=== PATIENT | female | born 1985 | race Caucasian/White ===

== ENCOUNTER 2022-10-30 13:20 | Inpatient (IN) | payer BC ==
[~2022-10-30] VITALS: Ht 172.7 cm; Wt 92.0 kg
[2022-10-30] VITALS (9 sets, daily range): BP systolic 117–155; BP diastolic 71–95; PULSE 87–116; TEMP 97.6–995
[2022-10-30] MEDS ORDERED: OMNICEF 300MG300 MG PO (13:31)
[2022-10-30] MEDS ORDERED: [UNRECOGNIZED DRUG - CODE] PO (13:32)
[2022-10-30] MEDS ORDERED: REGLAN 5MG T5 MG/TAB PO (13:32)
[2022-10-30] MEDS ORDERED: CARAFATE 1GM1 G PO (13:33)
[2022-10-30] MEDS ORDERED: ZESTRIL 10MG10 MG PO (13:41)
[2022-10-30] MEDS ORDERED: ZOLOFT PO (13:41)
[2022-10-30] MEDS ORDERED: XANAX 0.5MG0.5 MG PO (13:42)
--- NOTE | 2022-10-30 14:12 | NUR ---
Pt arrived as direct admit from [place], [place]. She reports having a gallbladder removal on 10/22/22. Midline abd. incision x 2 w/ sutures, 2 incision w/ sutures noted to left side abd. Pt denies abd. pain at this time. Denies nausea. All other skin is intact. Pt is a/o x 4. is at the bedside. Valuables denied. Orientation provided to room/unit. They had no further questions. Call light is in her reach.
[2022-10-30 15:11] LABS: HEMOGLOBIN 11.1 g/dl (12.5-16.0); MEAN CELL VOLUME 87 fl (80.0-100.0); MEAN CORPUSCULAR HEMOGLOBIN 28 pg (27-31); MEAN CORPUSCULAR HGB CONC 33 g/dl (33.0-37.0); MEAN PLATELET VOLUME 9.9 fl (7.4-10.4); PLATELET COUNT 522 K/mm3 (130-400); RED BLOOD COUNT 3.94 M/mm3 (4.10-5.30); REDCELL DISTRIBUTION WIDTH-CV 13.2 % (11.5-14.5)
[2022-10-30 15:12] LABS: HEMATOCRIT 34.1 % (37.0-47.0)
[2022-10-30 15:27] LABS: ALBUMIN 2.2 gm/dL (3.5-5.0); BILIRUBIN,TOTAL 0.5 mg/dL (0.2-1.2); CALCIUM 8.8 mg/dL (8.4-10.2); CREATININE, serum 0.53 mg/dL (0.57-1.11); TOTAL PROTEIN 6.6 gm/dL (6.2-8.1)
[2022-10-30 15:32] LABS: POTASSIUM 2.8 mmol/L (3.5-4.5)
--- NOTE | 2022-10-30 15:37 | NUR ---
Lab called to report WBC of 22.4. Dr. Sierra notified.
--- NOTE | 2022-10-30 15:45 | NUR ---
Lab called to report K+ 2.8. Dr. Sierra notified.
--- NOTE | 2022-10-30 15:54 | NUR ---
Pt is off the unit to OR.
[2022-10-30 15:57] LABS: ANISOCYTOSIS 1+; BAND 1 % (0-10); LYMPHOCYTE 10 % (20.0-51.0); NEUTROPHILS 85 % (42.0-75.2); PLATELET ESTIMATE INCREASED (NORMAL); TOXIC GRANULATION PRESENT
[2022-10-30 15:58] LABS: STOMATOCYTE 1+
--- NOTE | 2022-10-30 19:16 | NUR ---
RECEIVED CHANGE OF SHIFT REPORT FROM DAY SHIFT RN.
[2022-10-31] VITALS (8 sets, daily range): BP systolic 100–128; BP diastolic 61–74; PULSE 91–101; TEMP 98.4–99.4
--- NOTE | 2022-10-31 07:09 | NUR ---
CHANGE OF SHIFT REPORT GIVEN TO DAY SHIFT RNJENNIFER. PATIENT RESTING IN BED, RECEIVED X3 DOSES OF MS 1 MG FOR BREAKTHROUGH PAIN WITH EPIDURAL STILL IN PLACE. ENCOURAGED TO CONTINUE TO USE EPIDURAL DEMAND DOSE BUTTON NEEDED. PATIENT STATED SHE HOPES TO HAVE MORE PO FLUIDS BESIDES SIPS/CHIPS OF ICE. OBSERVED PATIENT BELCHING INTERMITTENTLY THROUGHOUT THE NIGHT, DENIES PASSING FLATUS. RUBI DRAIN IN PLACE/COMPRESSED. DRESSINGS TO ABD CDI. OLIVERA DRAINING CLEAR YELLOW URINE.
[2022-10-31 07:14] LABS: HEMATOCRIT 40.1 % (37.0-47.0); HEMOGLOBIN 12.7 g/dl (12.5-16.0); MEAN CELL VOLUME 88 fl (80.0-100.0); MEAN CORPUSCULAR HEMOGLOBIN 28 pg (27-31); MEAN CORPUSCULAR HGB CONC 32 g/dl (33.0-37.0); MEAN PLATELET VOLUME 10.1 fl (7.4-10.4); RED BLOOD COUNT 4.57 M/mm3 (4.10-5.30); REDCELL DISTRIBUTION WIDTH-CV 13.5 % (11.5-14.5)
[2022-10-31 07:21] LABS: PLATELET COUNT 625 K/mm3 (130-400)
--- NOTE | 2022-10-31 07:24 | NUR ---
Dr. Sierra notified of elevated WBC, and platlet counts.
[2022-10-31 07:35] LABS: CALCIUM 8.6 mg/dL (8.4-10.2); CREATININE, serum 0.55 mg/dL (0.57-1.11); MAGNESIUM 1.5 mg/dL (1.6-2.6); PHOSPHOROUS 5.3 mg/dL (2.3-4.7); POTASSIUM 3.5 mmol/L (3.5-4.5)
--- NOTE | 2022-10-31 09:00 | NUR ---
Pt. sitting up in chair. Pt. is A&OX3, assessment complete. IV to rt. forearm patent. Abd. incisions CDI. Pt. with epidural for pt. Pt. voices pain ok at this time. Pt. denies further needs, call light within reach.
--- NOTE | 2022-10-31 10:13 | NUR ---
Initial visit; Patient stated that she surely could use a prayer. Braid Pattern Setter offered a healing prayer and God's blessings for Debi. Braid Pattern Setter will keep Debi in her prayers.
--- NOTE | 2022-10-31 15:21 | NUR ---
RENATA met with the patient and her , Colton (ph#[phone]), to discuss discharge plan. The patient lives in [place] with Colton and their 8-year-old daughter. She shares that their daughter is staying with her sister while she is here. She reports independence with ADLs and does not have any DME. The patient's PCP has been Dr. Souza, but she shares that Dr. Souza is the reason why she is here and she will be looking for a new PCP to switch to in [place]. She obtains her medications from [facility]. The patient does not have a DPOA-HC, but she was interested in obtaining a form. RENATA provided. The patient plans to return home with her family upon discharge. No additional needs at this time. *Discharge plan: home with family*
--- NOTE | 2022-10-31 20:42 | NUR ---
Patient A/Ox4, head to toe assessment done, see shift assessment, with IV infusing well on right forearm, dressing CDI, with YUE drain draining minimal serosanguinous fluid, with epidural running at 6cc/hr with 10 minutes lock out, received an order from Dr. Puckett at 1955 for TUMS 1000mg every hour as needed for indigestion and Xanax 0.5 mg daily PRN, denies further needs, call light and personal items within reach, will continue to monitor.
--- NOTE | 2022-11-01 | NUR ---
Patient's oxygen saturation is on the low 90's, RT informed about this.
[2022-11-01 00:04] VITALS: BP 119/72; PULSE 108; TEMP 98.7
--- NOTE | 2022-11-01 01:17 | NUR ---
Patient still complaining of indigestion Tums given per request and as ordered PRN.
[2022-11-01 04:31] VITALS: BP 113/62; PULSE 91; TEMP 98
--- NOTE | 2022-11-01 04:44 | NUR ---
Patient reports pain all over her abdomen, pain score of 8/10, encouraged to hit the button for her epidural, instructed to wait few minutes and if pain still is present, will give morphine for breakthrough pain, patient agreed with the plan, reports her indigestion is better.
--- NOTE | 2022-11-01 05:17 | NUR ---
Patient verbalized pain is better, denies further need at this time, will continue to monitor.
--- NOTE | 2022-11-01 06:37 | NUR ---
Patient walked down the hallway, denies further need at this time.
[2022-11-01 06:45] LABS: MEAN CELL VOLUME 87 fl (80.0-100.0); MEAN CORPUSCULAR HGB CONC 31 g/dl (33.0-37.0); MEAN PLATELET VOLUME 10.2 fl (7.4-10.4); RED BLOOD COUNT 3.91 M/mm3 (4.10-5.30); REDCELL DISTRIBUTION WIDTH-CV 13.7 % (11.5-14.5)
[2022-11-01 07:08] LABS: HEMATOCRIT 34.1 % (37.0-47.0); MEAN CORPUSCULAR HEMOGLOBIN 27 pg (27-31); PLATELET COUNT 524 K/mm3 (130-400)
[2022-11-01 07:09] LABS: HEMOGLOBIN 10.7 g/dl (12.5-16.0)
[2022-11-01 07:21] LABS: CALCIUM 8.7 mg/dL (8.4-10.2); CREATININE, serum 0.53 mg/dL (0.57-1.11); MAGNESIUM 1.6 mg/dL (1.6-2.6); PHOSPHOROUS 3.3 mg/dL (2.3-4.7); POTASSIUM 4.3 mmol/L (3.5-4.5)
[2022-11-01 08:00] VITALS: BP 128/85; PULSE 82; TEMP 98.2
--- NOTE | 2022-11-01 08:00 | NUR ---
Patient sitting up in bed, A&Ox4. VSS. IV CDI, fluids infusing. Epidural intact. White intact. Reports pain 12/07. Tolerating clears. No further needs expressed. Call light within reach
--- NOTE | 2022-11-01 10:16 | NUR ---
White removed, balloon intact. Pericare provided before and after removal. Nursing staff instructed the patient to call when needing to void. Call light within reach
--- NOTE | 2022-11-01 10:18 | NUR ---
Incisions abdomen dressing 4x4 and metapor, drain sponge on dmitriy site and metapor. Scant drainage on dmitriy site. Patient tolerated well. Call light within reach
--- NOTE | 2022-11-01 10:18 | NUR ---
10ml removed from the balloon. 600 ml emptied from salazar
[2022-11-01 11:45] VITALS: BP 129/73; PULSE 115; TEMP 97.9
[2022-11-01 15:23] VITALS: BP 133/80; PULSE 104; TEMP 98
[2022-11-01 19:45] VITALS: BP 132/77; PULSE 116; TEMP 98.6
--- NOTE | 2022-11-01 21:15 | NUR ---
Patient in good spirits, at bedside, very supportive, still with IV infusing well on right forearm, dressing to abdomen CDI, still with epidural running at 6cc/hr with 10 minutes lock out, has been voiding fine, tolerating her full liquid diet, denies nause at this time, denies further needs, call light and personal items within reach, will continue to monitor.
[2022-11-02] VITALS (9 sets, daily range): BP systolic 128–158; BP diastolic 70–89; PULSE 74–94; TEMP 97.5–98.7
[2022-11-02 06:55] LABS: HEMOGLOBIN 10.2 g/dl (12.5-16.0); MEAN CELL VOLUME 91 fl (80.0-100.0); MEAN CORPUSCULAR HEMOGLOBIN 28 pg (27-31); MEAN CORPUSCULAR HGB CONC 31 g/dl (33.0-37.0); MEAN PLATELET VOLUME 10.3 fl (7.4-10.4); PLATELET COUNT 473 K/mm3 (130-400); RED BLOOD COUNT 3.63 M/mm3 (4.10-5.30); REDCELL DISTRIBUTION WIDTH-CV 13.5 % (11.5-14.5)
[2022-11-02 07:05] LABS: HEMATOCRIT 32.9 % (37.0-47.0)
[2022-11-02 07:16] LABS: CALCIUM 8.5 mg/dL (8.4-10.2); CREATININE, serum 0.53 mg/dL (0.57-1.11); MAGNESIUM 1.6 mg/dL (1.6-2.6); POTASSIUM 3.7 mmol/L (3.5-4.5)
--- NOTE | 2022-11-02 10:42 | NUR ---
Per VO Dr. Sierra, removed sutures x 2 from R abdomen. Sutures from lap procedure prior to admit. Lap sites CDI, SHAFT SINKER, sutures out complete/intact.
--- NOTE | 2022-11-02 21:00 | NUR ---
Patient reports she is over with the IV, dayshift nurse attempted to restart an IV but failed, called Dr. Sierra at 2009 and received an order to switch the IV antibiotics to PO, Dr. Sierra was also okay without having an IV even if an epidural still in place.
[2022-11-03] VITALS (9 sets, daily range): BP systolic 129–148; BP diastolic 71–95; PULSE 69–84; TEMP 97.5–98.4
[2022-11-03 06:37] LABS: HEMOGLOBIN 10.1 g/dl (12.5-16.0); MEAN CELL VOLUME 90 fl (80.0-100.0); MEAN CORPUSCULAR HEMOGLOBIN 28 pg (27-31); MEAN CORPUSCULAR HGB CONC 31 g/dl (33.0-37.0); MEAN PLATELET VOLUME 10.2 fl (7.4-10.4); PLATELET COUNT 500 K/mm3 (130-400); RED BLOOD COUNT 3.59 M/mm3 (4.10-5.30); REDCELL DISTRIBUTION WIDTH-CV 13.5 % (11.5-14.5)
[2022-11-03 06:41] LABS: CALCIUM 8.5 mg/dL (8.4-10.2); CREATININE, serum 0.51 mg/dL (0.57-1.11); POTASSIUM 3.7 mmol/L (3.5-4.5)
[2022-11-03 07:00] LABS: HEMATOCRIT 32.4 % (37.0-47.0)
--- NOTE | 2022-11-03 10:45 | NUR ---
PATIENT ALERT AND ORIENTED X4. VSS. PATIENT HERE FOR BILE LEAK S/P LAP LATOYA. PATIENT REPORTS PAIN 4/10, PAIN MEDICATION ADMINISTERED. EDIDURAL DC'D THIS AM. PATIENT TOLERATING PO. PATIENT ON RA. YUE DRAIN WITH MINIMAL OUTPUT. MIDLINE WITH SHADOWING DRAINAGE. LAP SITES X2, CDI WITH BANDAID. PATIENT RESTING IN BED, CALL LIGHT IN REACH.
--- NOTE | 2022-11-03 13:52 | NUR ---
PATIENT ABLE TO SHOWER, DRESSINGS CHANGED. PATIENT DENIES ANY PAIN AT THIS TIME.
--- NOTE | 2022-11-03 18:54 | NUR ---
RECEIVED CHANGE OF SHIFT REPORT FROM DAY SHIFT RN.
--- NOTE | 2022-11-03 19:19 | NUR ---
REQUESTED/GIVEN MOTRIN FOR DISCOMFORT AT THIS TIME, SEE MAR. NO DRSG TO PREV EPIDURAL SITE, PATIENT STATED SHE TOOK OFF BANDAID DURING SHOWER THIS MORNING, OBSERVED NO DRAINAGE FROM PREV EPIDURAL SITE.
[2022-11-04] VITALS (8 sets, daily range): BP systolic 127–148; BP diastolic 66–90; PULSE 64–92; TEMP 97.6–98.7
[2022-11-04 06:25] LABS: HEMOGLOBIN 10.5 g/dl (12.5-16.0); MEAN CELL VOLUME 90 fl (80.0-100.0); MEAN CORPUSCULAR HEMOGLOBIN 28 pg (27-31); MEAN CORPUSCULAR HGB CONC 31 g/dl (33.0-37.0); MEAN PLATELET VOLUME 10.1 fl (7.4-10.4); PLATELET COUNT 486 K/mm3 (130-400); RED BLOOD COUNT 3.72 M/mm3 (4.10-5.30); REDCELL DISTRIBUTION WIDTH-CV 13.5 % (11.5-14.5)
[2022-11-04 06:33] LABS: HEMATOCRIT 33.5 % (37.0-47.0)
[2022-11-04 06:44] LABS: BILIRUBIN,TOTAL 0.3 mg/dL (0.2-1.2); CALCIUM 8.6 mg/dL (8.4-10.2); CREATININE, serum 0.55 mg/dL (0.57-1.11); POTASSIUM 3.8 mmol/L (3.5-4.5); TOTAL PROTEIN 5.9 gm/dL (6.2-8.1)
--- NOTE | 2022-11-04 06:46 | NUR ---
CHANGE OF SHIFT REPORT GIVEN TO DAY SHIFT RNJENNIFER.
--- NOTE | 2022-11-04 15:35 | NUR ---
Telehealth visit conducted with Dr. Omari Ro, Infectious Disease. Patient consented to visit. Patients and nurse were present during visit. Telecommunication initiated without any difficulties during exam. All questions were answered by Dr. Ro
--- NOTE | 2022-11-04 19:19 | NUR ---
RECEIVED CHANGE OF SHIFT REPORT FROM DAY SHIFT RN.
--- NOTE | 2022-11-04 19:55 | NUR ---
REQUESTED AND GIVEN NORCO FOR ABD PAIN AFTER WALKING UP AND DOWN STAIR WITH . DENIES NAUSEA, REPORTS PASSING FLATUS BUT DID NOT PASS BM TODAY.
--- NOTE | 2022-11-04 23:07 | NUR ---
REPORTED CONCERN FOR OBSERVED DRAINAGE TO MIDLINE ABD DRESSING. OBSERVED TO DISTAL END OF MID LINE ABD DRSG SMALL AMOUNT OF DRAINAGE SPOTTING DRSG, NO DRAINAGE OBSERVED COMING THROUGH DRSG AT THIS TIME. ABD SOFT TO PALP, DENIES INCREASED PAIN WITH PALPATION TO ABD. DENIES NAUSEA, REPORTS STILL PASSING GAS. DENIES SOA/CHEST PAIN/DIZZINESS AT THIS TIME. REQUESTED AND GIVEN MOTRIN, SEE BLAYNE, TO HELP HER SLEEP EASIER. NO OTHER NEEDS REPORTED.
[2022-11-05] VITALS (10 sets, daily range): BP systolic 133–148; BP diastolic 81–86; PULSE 62–91; TEMP 97.8–98.7
--- NOTE | 2022-11-05 06:40 | NUR ---
CHANGE OF SHIFT REPORT GIVEN TO DAY SHIFT RNGILL.
--- NOTE | 2022-11-05 06:55 | NUR ---
Shift report received from restaurant shift leader RN. Pt sleeping supine in bed. sleeping at the bedside. Pt aroused easily from sleep. Denies any needs at this time. Call light is in her reach.
--- NOTE | 2022-11-05 16:00 | NUR ---
Telehealth visit conducted with Dr. Omari Ro, Infectious Disease. Patient consented to visit. Telecommunication initiated without any difficulties during exam. All questions were answered by Dr. Ro
--- NOTE | 2022-11-05 19:00 | NUR ---
RECEIVED CHANGE OF SHIFT REPORT FROM DAY SHIFT RN.
[2022-11-06 04:18] VITALS: BP 129/86; PULSE 83; TEMP 97.9
[2022-11-06 06:34] LABS: MEAN CELL VOLUME 90 fl (80.0-100.0); MEAN CORPUSCULAR HEMOGLOBIN 28 pg (27-31); MEAN CORPUSCULAR HGB CONC 31 g/dl (33.0-37.0); MEAN PLATELET VOLUME 10.1 fl (7.4-10.4); PLATELET COUNT 520 K/mm3 (130-400); RED BLOOD COUNT 3.93 M/mm3 (4.10-5.30); REDCELL DISTRIBUTION WIDTH-CV 13.9 % (11.5-14.5)
[2022-11-06 06:36] LABS: HEMATOCRIT 35.2 % (37.0-47.0)
--- NOTE | 2022-11-06 07:09 | NUR ---
CHANGE OF SHIFT REPORT GIVEN TO DAY SHIFT RNJOVANI.
[2022-11-06 07:13] LABS: CREATININE, serum 0.59 mg/dL (0.57-1.11); MAGNESIUM 1.5 mg/dL (1.6-2.6); PHOSPHOROUS 4.2 mg/dL (2.3-4.7)
[2022-11-06 07:15] VITALS: BP 135/90; PULSE 80; TEMP 98.2
[2022-11-06 07:49] VITALS: BP_SYST 135
--- NOTE | 2022-11-06 08:35 | NUR ---
PATIENT ALERT AND ORIENTED X4. VSS. PATIENT HERE FOR BILE LEAK S/P LAP LATOYA. LAP SITES X4, CDI WITH BANDAIDS. MIDLINE WITH KEENAN INTACT, AIRSTRIP COVERING WITH SOME DRAINAGE. OLD YUE DRAIN SITE CDI WITH GAUZE/TEGADERM. PATIENT DENIES ANY PAIN. ASSESSMENT PERFORMED. AM MEDS ADMINISTERED. WILL CHANGE DRESSING AFTER PATIENT SHOWERS. CALL LIGHT IN REACH.
[2022-11-06] MEDS ORDERED: NORCO 325 MG-51 TAB PO (11:04)
[2022-11-06] MEDS ORDERED: CIPRO 500MG TA500 MG PO (11:05)
[2022-11-06] MEDS ORDERED: FLAGYL500 MG PO (11:05)
[2022-11-06] MEDS ORDERED: PROTONIX 40MG T40 MG PO (11:06)
[2022-11-06 11:53] VITALS: BP 125/74; PULSE 101; TEMP 98.6
--- NOTE | 2022-11-06 13:58 | NUR ---
DISCHARGE INSTRUCTIONS PROVIDED. PATIENT EDUCATION GIVEN. MEDICATIONS REVIEWED. FOLLOW UP APPOINTMENT DISCUSSED. NO IV TO DC. DRESSING CHANGED THIS AM, NO NEED TO PERFORM REPEAT DRESSING CHANGE. PATIENT DENIES ANY QUESTIONS OR CONCERNS.
== END 2022-11-06 14:01 | disposition home or self-care (01) | DRG 329 ==
LOC: SURG 13:20
PROVIDERS: ADMIT Surgery
PROC: 0FQ94ZZ Repair Common Bile Duct, Percutaneous Endoscopic Approach (ICD-10-PCS; principal; 2022-10-30 16:00)
PROC: 0DB80ZZ Excision of Small Intestine, Open Approach (ICD-10-PCS; 2022-10-30 16:00)
PROC: 8E0W4CZ Robotic Assisted Procedure of Trunk Region, Percutaneous Endoscopic Approach (ICD-10-PCS; 2022-10-30 16:00)
DX: K91.89 Other postprocedural complications and disorders of digestive system (principal); K63.1 Perforation of intestine (nontraumatic); K65.9 Peritonitis, unspecified; K83.8 Other specified diseases of biliary tract; F32.A Depression, unspecified; F41.9 Anxiety disorder, unspecified; K21.9 Gastro-esophageal reflux disease without esophagitis; E87.6 Hypokalemia; E83.42 Hypomagnesemia; D72.829 Elevated white blood cell count, unspecified; Y83.8 Other surgical procedures as the cause of abnormal reaction of the patient, or of later complication, without mention of misadventure at the time of the procedure; E28.2 Polycystic ovarian syndrome; Z88.0 Allergy status to penicillin; Z88.2 Allergy status to sulfonamides; Z91.018 Allergy to other foods; Z90.49 Acquired absence of other specified parts of digestive tract; Z87.891 Personal history of nicotine dependence; Z79.891 Long term (current) use of opiate analgesic
CPT/HCPCS: A4314; A9284; C9113; J0330; J0690; J0696; J1100; J1170; J1450; J1650; J1956; J2270; J2405; J2704; J2795; J3010; J3475; J3480; J7120

== ENCOUNTER 2023-06-18 05:28 | Observation (INO) | payer BC ==
[~2023-06-18] VITALS: Ht 172.7 cm; Wt 91.3 kg
[2023-06-18] VITALS (13 sets, daily range): BP systolic 104–128; BP diastolic 63–88; PULSE 60–88; TEMP 97.2–97.5
[~2023-06-18 05:28] MED LIST: CARAFATE 1GM1 G PO; CIPRO 500MG TA500 MG PO; FLAGYL500 MG PO; NORCO 325 MG-51 TAB PO; OMNICEF 300MG300 MG PO; PROTONIX 40MG T40 MG PO; REGLAN 5MG T5 MG/TAB PO; XANAX 0.5MG0.5 MG PO; ZESTRIL 10MG10 MG PO; ZOLOFT 100MG100 MG PO; [UNRECOGNIZED DRUG - CODE] PO
[2023-06-18] MEDS ORDERED: PRILOTC PO (05:51)
--- NOTE | 2023-06-18 06:11 | NUR ---
The patient ambulated back to [facility] independently using a steady gait and appeared to tolerate the activity well. Vital signs obtained. Consent signed. 18G IV started in left hand with one stick, LR infusing without difficulty. Assessment complete. Home medications reconcilled. Warm blanket provided. Call light is within reach. and sister brought back to be at her bedside. The patient denies any further needs at this time.
--- NOTE | 2023-06-18 14:50 | NUR ---
Patient resting in bed. She is sitting up on her phone. Family at bedside. VSS on O2. Roxicodone for pain. Clear liquids provided. Denies nausea. YUE drain to compression. Midline w/gauze dressing, lap sites open to air. SCDS BLE. IVf as ordered. Will monitor
--- NOTE | 2023-06-18 19:09 | NUR ---
Patient sitting up in bed, tolerting clears without nausea. Pain controlled with oxycodone. Pain was elevated when out of bed. Voided without problem. Steady on her feet. Vss on room air. REport to jessika Salvador to resume cares
--- NOTE | 2023-06-18 20:00 | NUR ---
Assessment complete. A&Ox4. Denies nausea/shortness of breath. Tolerating PO. VS stable. Rating pain 5/10 on pain scale to abdomen-described as ache-motrin given per dr quinonez. Spoke with Dr Lara and new orders received to restart home medications. Midline dresssing-gauze/tape-CDI. Can currently only visualize 3 lap sites-edges well approximated-small amount of drainage noted-bandaids applied by AC Colindres during bedside report. Will monitor those. YUE drain with 30mls bright red drainage. Left wrist INT flushes without difficulty. SCDs bilat. Denies current needs. Call light in reach. Will monitor.
[2023-06-19] VITALS (13 sets, daily range): BP systolic 93–110; BP diastolic 41–68; PULSE 59–78; TEMP 97.7–98.2
--- NOTE | 2023-06-19 05:34 | NUR ---
Patient had an unevenful night. Tolerated clear liquids-new order placed for fulls. Has been INTd. Midline incision dressing CDI. LAP sites with bandaids CDI. Received oxycodone for pain with good control. YUE drain with 120mls out for this shift. Denies current questions/concerns.
--- NOTE | 2023-06-19 10:35 | NUR ---
Patient sitting up in bed, watchign IV and coloring. Pain managed with am, pain elevated with movement. We ambulated the halls and she did well. Voiding without problems, she does report flatus. Karri drain to compression. Incisions site dressing CDI. Will monitor
--- NOTE | 2023-06-19 13:24 | NUR ---
Patient resting in bed. Spouse at bedside. rounded and plan of care reviewed. Diet progressed. Denies nausea. Pain managed with Roxicodone, patient reports elevated pain after coughing. Will monitor
--- NOTE | 2023-06-19 14:21 | NUR ---
Initial visit; Patient doing well and states that she appreciates Dairy Lab Technician stopping by and offering God's blessings.
--- NOTE | 2023-06-19 15:20 | NUR ---
drawer hardware worker met with patient to discuss discharge planning. Patient lives in [place] with her , Colton Strickland# [phone]. PCP Dr Macdonald and preferred pharmacy is [facility]. No issues affording medications at this time. Insurance is [employer]. Patient does not have DPOA-HC and does not wish to complete one at this time. No DME and reports being independent with ADLS. Patient has transportation to and from appointments. Patient would like to return home at time of discharge. Discharge Plan: [facility]
--- NOTE | 2023-06-19 17:22 | NUR ---
Pain better managed after Motrin. Patient pain increases after cough. Patient ambulated halls independently with significant other. Tolerating diet.
--- NOTE | 2023-06-19 20:00 | NUR ---
Assessment complete. A&Ox4. Denies nausea/shortness of breath. Rating pain 4/10 on pain scale-described as constant ache with intermittent sharp pains. Received oxycodone at 1830. Lap sites-edges well approximated-bandaids CDI. Midline incision with CDI gauze/tape dressing. YUE drain with a scant amount of reddish drainage. Left wirst INT flushes without difficulty. SCDs off as patient is up in room independently. Spouse is at bedside. Plan of care discussed for this shift to include pain control/ambulation/calling for questions/concerns. Verbalizes understanding. Call light in reach. Will monitor.
--- NOTE | 2023-06-19 23:49 | NUR ---
Patient requesting pain medications. Scheduled tylenol given as well as oxycodone. Rating pain 7/10 on pain scale to abdomen. Will monitor.
[2023-06-20 01:00] VITALS: BP_SYST 104
[2023-06-20 03:41] VITALS: BP 117/75; PULSE 63; TEMP 98.3
[2023-06-20 03:56] VITALS: BP_SYST 117
--- NOTE | 2023-06-20 05:48 | NUR ---
Patient had an uneventful night. Received oxycodone/tylenol for pain with adequate pain control. Up in room independently. VS remained stable. Voiding without difficulty. Laps sites/low transverse incision-edges well approximated-no drainage noted. YUE drain has had 20mls out this shift. C/O pain at this time to left lower quadrant-described as constant ache. Oxycodone/scheduled tylenol given per dr order. Will continue to monitor.
[2023-06-20 07:34] VITALS: BP 122/77; PULSE 56; TEMP 97.9
[2023-06-20 09:00] VITALS: BP_SYST 122
[2023-06-20] MEDS ORDERED: ROXICODONE 55 MG/TAB PO (09:39)
== END 2023-06-20 10:54 | disposition home or self-care (01) ==
LOC: SDCO 05:28 → SURG 12:30 → SDCO 06-19 13:26 → SURG 06-19 13:27
PROVIDERS: ADMIT Surgery
DX: K43.2 Incisional hernia without obstruction or gangrene (principal); N83.01 Follicular cyst of right ovary; G89.18 Other acute postprocedural pain; Z87.891 Personal history of nicotine dependence
CPT/HCPCS: OP; A9284; C1781; G0378; J0665; J0690; J1100; J1170; J1885; J2405; J2704; J3010; J7120

== ENCOUNTER 2023-06-26 19:44 | Emergency (ER) | payer BC ==
[~2023-06-26] VITALS: Ht 172.7 cm; Wt 90.9 kg
[~2023-06-26 19:44] MED LIST changes: +PRILOTC PO; +ROXICODONE 55 MG/TAB PO
[2023-06-26 19:58] VITALS: TEMP 97.9
[2023-06-26 20:39] LABS: BASO # 0.1 K/mm3 (0.0-0.2); BASO % 0.4 % (0.0-2.0); EOS # 0.3 K/mm3 (0.0-0.7); EOS % 1.9 % (0.0-4.0); GRAN # 9.8 K/mm3 (1.4-6.5); GRAN % 72.2 % (42.2-75.2); HEMOGLOBIN 13.7 g/dl (12.5-16.0); LYMPH # 2.5 K/mm3 (1.2-3.4); LYMPH % 18.3 % (20.0-51.0); MEAN CELL VOLUME 87 fl (80.0-100.0); MEAN CORPUSCULAR HEMOGLOBIN 28 pg (27-31); MEAN CORPUSCULAR HGB CONC 33 g/dl (33.0-37.0); MEAN PLATELET VOLUME 9.4 fl (7.4-10.4); MONO # 0.9 K/mm3 (0.1-0.6); MONO % 6.3 % (1.7-9.3); PLATELET COUNT 427 K/mm3 (130-400); RED BLOOD COUNT 4.82 M/mm3 (4.10-5.30); REDCELL DISTRIBUTION WIDTH-CV 13.3 % (11.5-14.5)
[2023-06-26 20:45] LABS: ALBUMIN 4.2 gm/dL (3.5-5.0); BILIRUBIN,TOTAL 0.9 mg/dL (0.2-1.2); C-REACTIVE PROTEIN 3.66 mg/dL (0.00-0.50); CALCIUM 10.1 mg/dL (8.4-10.2); CREATININE, serum 0.77 mg/dL (0.57-1.11); POTASSIUM 3.9 mmol/L (3.5-4.5); TOTAL PROTEIN 8.2 gm/dL (6.2-8.1)
[2023-06-26 20:53] LABS: COLLECTION METHOD CLEAN CATCH
[2023-06-26 21:13] LABS: URINE APPEARANCE Clear (CLEAR/HAZY); URINE COLOR Yellow (YELLOW)
[2023-06-26 21:14] LABS: PH 5.5 (5.0-8.5); SQUAMOUS EPITHELIAL 0-2 /hpf (0-10); URINE BACTERIA None Seen /hpf (NONE SEEN); URINE BLOOD TRACE-LYSED (NEGATIVE); URINE GLUCOSE Negative (NEGATIVE); URINE KETONE Negative (NEGATIVE); URINE NITRATE Negative (NEGATIVE); URINE PROTEIN(semi-quant) Negative (NEGATIVE); URINE UROBILINOGEN 0.2 E.U/dL (0.2-1.0)
[2023-06-26] MEDS ORDERED: CLEOCIN HCL300 MG PO (22:46)
[2023-06-26 22:54] VITALS: BP 105/71; PULSE 73
== END 2023-06-26 22:54 | disposition home or self-care (01) ==
LOC: COL.ER 19:44
PROVIDERS: Nurse Practitioner
DX: T81.41XA Infection following a procedure, superficial incisional surgical site, initial encounter (principal); Z88.0 Allergy status to penicillin; Z88.2 Allergy status to sulfonamides
CPT/HCPCS: Q9967